=== PATIENT | male | born 1970 | race Caucasian/White ===

== ENCOUNTER 2022-01-31 16:17 | Inpatient (IN) | payer MEDICARE ==
[~2022-01-31 16:17] MED LIST: CEFEPIME; KLONOPIN0.5 MG PO; MERREM; MORPHINE SULFAT30 M4 PO; TIZANIDINE HCL4 MG PO; VANCO; [UNRECOGNIZED DRUG - OTHER]
[2022-02-03] MEDS ORDERED: DILAUDID 0.5 MG/0.5 IVP (15:27)
[2022-02-03] MEDS ORDERED: LANTUS INS100 UTS/M1 SQ (15:27)
[2022-02-03] MEDS ORDERED: PROTONIX IV40 MG IVP (15:27)
[2022-02-03] MEDS ORDERED: MERREM IV (15:27)
[2022-02-03] MEDS ORDERED: PHENERGAN 25 MG25 M1 PO (15:27)
[2022-02-03] MEDS ORDERED: KLONOPIN TAB 00.5 MG PO (15:27)
[2022-02-03] MEDS ORDERED: DAPTOMYCIN IV (15:27)
[2022-02-03] MEDS ORDERED: ALDACTONE 25MG25 MG PO (15:27)
[2022-02-03] MEDS ORDERED: QUETIAPINE FUMA25 MG PO (15:27)
[2022-02-03] MEDS ORDERED: TIZANIDINE HCL4 MG PO (15:27)
== END 2022-02-03 18:30 | disposition short-term general hospital (02) | DRG 552 ==
LOC: M/S 16:17
PROVIDERS: ADMIT Internal Medicine
PROC: B24BZZZ Ultrasonography of Heart with Aorta (ICD-10-PCS; principal; 2022-01-27)
PROC: 02HV33Z Insertion of Infusion Device into Superior Vena Cava, Percutaneous Approach (ICD-10-PCS; 2022-01-28)
PROC: B548ZZA Ultrasonography of Superior Vena Cava, Guidance (ICD-10-PCS; 2022-01-28)
PROC: 0W9G3ZZ Drainage of Peritoneal Cavity, Percutaneous Approach (ICD-10-PCS; 2022-02-02)
PROC: BW40ZZZ Ultrasonography of Abdomen (ICD-10-PCS; 2022-02-02)
DX: M46.47 Discitis, unspecified, lumbosacral region (principal); E87.1 Hypo-osmolality and hyponatremia; R18.8 Other ascites; M86.8X8 Other osteomyelitis, other site; N30.00 Acute cystitis without hematuria; T85.615A Breakdown (mechanical) of other nervous system device, implant or graft, initial encounter; K74.60 Unspecified cirrhosis of liver; Z20.822 Contact with and (suspected) exposure to COVID-19; L89.152 Pressure ulcer of sacral region, stage 2; Y83.8 Other surgical procedures as the cause of abnormal reaction of the patient, or of later complication, without mention of misadventure at the time of the procedure; R53.81 Other malaise; G89.29 Other chronic pain; F19.10 Other psychoactive substance abuse, uncomplicated; E11.9 Type 2 diabetes mellitus without complications; F17.210 Nicotine dependence, cigarettes, uncomplicated; I08.0 Rheumatic disorders of both mitral and aortic valves; R74.01 Elevation of levels of liver transaminase levels; B95.62 Methicillin resistant Staphylococcus aureus infection as the cause of diseases classified elsewhere; D69.6 Thrombocytopenia, unspecified; B18.2 Chronic viral hepatitis C; Z86.73 Personal history of transient ischemic attack (TIA), and cerebral infarction without residual deficits; Z98.890 Other specified postprocedural states; Z82.49 Family history of ischemic heart disease and other diseases of the circulatory system; Z83.3 Family history of diabetes mellitus
CPT/HCPCS: ECHO; 36415; 71045; 71250; 72132; 74018; 80048; 80053; 80061; 80202; 80307; 81001; 82436; 82533; 82550; 82553; 82945; 82962; 83036; 83615; 83735; 83880; 83935; 84100; 84133; 84157; 84295; 84300; 84443; 84478; 84484; 85018; 85025; 85027; 85610; 85652; 86140; 87040; 87070; 87077; 87086; 87150; 87186; 87205; 89051; 93005; 93306; 96365; 96366; 96375; 96376; 97110-GP-CQ; 97161; 97166; 97530-GP-CQ; 99285; A6212; C1729; C1751; C9113; J0692; J0878; J1170; J1940; J2185; J2405; J3370; J3475; J7030; J7070; P9047; Q9967